=== PATIENT | female | born 1975 | race Caucasian/White ===

== ENCOUNTER 2019-02-21 23:38 | Emergency (ER) | payer OTHER ==
--- OUTSIDE RECORDS SUMMARY | 2019-02-21 23:40 | XMS REPORT ---
:1975 [facility] Address [address] [place] [address] Dr. Calderon[address] [place] [id number] Care Team Providers Name Role Phone Unavailable Unavailable Unavailable Problems This patient has no known problems. Allergies, Adverse Reactions, Alerts This patient has no known allergies or adverse reactions. Medications This patient has no known medications.
--- OUTSIDE RECORDS SUMMARY | 2019-02-21 23:40 | XMS REPORT | Continuity of Care Document ---
:1975 Author Organization [facility] Address [address] [place] [address] Phone Unavailable Care Team Providers Name Role Phone OTHER, ENTER NAME IN NOTES Primary Care Physician Unavailable Insurance Providers Guarantor Ofelia Lu Address [address] [place] [address] Email [email or web address] Payer [employer] Policy Number [id number] Subscriber's Name Ofelia Lu Relationship Self / Same As Patient Group Number [id number] Group Name NA Advance Directives Directive Response Recorded Date/Time Patient/Family Given Education Material R/T Y - 02/12/19..[place] 02/12/19 3: 31pm Directives? Chief Complaint and Reason for Visit Chief Complaint Skin Rash/Abscess/Wound Reason for Visit Abscess Cellulitis Problems Active ProblemsNo active problem information available. Past Problems Medical Problem Onset Date Status Abscess Unknown Acute Cellulitis Unknown Acute Medications No medication information available. Social History Social History Problem Response Recorded Date/Time Onset Date Status Hx Physical Abuse No 02/12/2019 3:27pm Not Applicable Not Applicable Smoking Status Start Date Stop Date Never smoker Hospital Discharge Instructions No hospital discharge instruction information available. Plan of Care Discharge Date 02/12/19 6:18pm Instructions/Education Provided Skin Abscess, Ecit-rf-Pvyq Cellulitis, Adult, Djaq-pv-Dkns Forms Provided Portal Welcome Letter Prescriptions See Medication Section Referrals OTHER,ENTER NAME IN NOTES Additional Instructions/Education CALL SURGEON FOR FOLLOW UP BACTRIM TWICE A DAY DOXYCYCLINE TWICE A DAY NAPROSYN TWICE A DAY WITH FOOD Functional Status No functional status information available. Allergies, Adverse Reactions, Alerts No known allergies. Immunizations No immunization information available. Vital Signs Acute Vital Signs Vital Response Date/Time Blood Pressure 123/77 mm Hg 02/12/2019 6:18pm Pulse Pulse Rate (adult) 78 beats per minute (60 - 100) 02/12/2019 6:18pm Respiratory Rate 20 breaths per minute (10 - 24) 02/12/2019 6:18pm Temperature Source Oral 02/12/2019 6:18pm Height 5 ft 8 in 02/12/2019 3:27pm Weight 140 lb 02/12/2019 3:27pm Body Mass Index 21.3 kg/m^2 02/12/2019 3:27pm Results Laboratory Results Test Name Result Units Flags Reference Collection Result Comments Date/Time Date/Time Random Glucose 99 mg/dL 74-106 02/12/2019 02/12/2019 4:40pm 5:04pm Blood Urea 11 mg/dL 6-20 02/12/2019 02/12/2019 Nitrogen 4:40pm 5:04pm Serum 277 L 280-300 02/12/2019 02/12/2019 Osmolality 4:40pm 5:04pm Creatinine 0.5 mg/dL 0.50-0.90 02/12/2019 02/12/2019 4:40pm 5:04pm Glomerular > 60.00 02/12/2019 02/12/2019 GFR RESULTS ARE REPORTED IN mL/min/1.73m2. Filtration 4:40pm 5:04pm Rate Calc Normal GFR: >60mL/min Moderately decreased GFR: 30-59 mL/min Severely decreased GFR: 15-29 mL/min Kidney Failure (or Dialysis): <15 mL/min The calculated eGFR is not valid for patients younger than 18 years or older than 75 years. BUN/Creatinine 22.0 H 12-20 02/12/2019 02/12/2019 Ratio 4:40pm 5:04pm Sodium Level 139 mmol/L 135-145 02/12/2019 02/12/2019 4:40pm 5:04pm Potassium 4.1 mmol/L 3.5-5.2 02/12/2019 02/12/2019 Level 4:40pm 5:04pm Chloride Level 98 mmol/L 98-108 02/12/2019 02/12/2019 4:40pm 5:04pm Carbon Dioxide 27 mmol/L 21-32 02/12/2019 02/12/2019 Level 4:40pm 5:04pm Anion Gap 18.1 mEq/L 12-20 02/12/2019 02/12/2019 4:40pm 5:04pm Calcium Level 10.1 mg/dL H 8.6-10.0 02/12/2019 02/12/2019 4:40pm 5:04pm Procedures Procedure Status Date Provider(s) Computed tomography of pelvis with contrast Completed 02/12/19 CARMEN PAYAN MD Encounters Encounter Location Arrival/Admit Date Discharge/Depart Date Attending Provider Departed [facility] 02/12/19 3:20pm 02/12/19 6:18pm CARMEN PAYAN [facility] Recent Diagnosis
[2019-02-22] MEDS ORDERED: MECLIZINE HCL 12.5 MG TAB ONE (02:09)
[2019-02-22] MEDS ORDERED: ONDANSETRON 4 MG (ODT) TAB ONE (02:09)
[2019-02-22 02:27] LABS: Basophils % 0.6 % (0-1.3); Lymphocytes % 18.6 % (15.3-44.8); RBC Red Blood Cell Count 4.11 M/uL (3.86-4.86)
[2019-02-22 02:40] LABS: ALT/SGPT 22 U/L (12-78); AST/SGOT 15 U/L (15-37); Alkaline Phosphatase 43 U/L (45-117); BUN Blood Urea Nitrogen 13 mg/dL (7-18); Bicarbonate 27 mmol/L (21-32); Bilirubin Total 0.3 mg/dL (0.2-1.0); Glucose Level 87 mg/dL (74-106); Potassium 4.2 mmol/L (3.5-5.1); Protein, Total 8.2 g/dL (6.4-8.2); Sodium Level 138 mmol/L (136-145); Troponin (Emerg Dept Use Only) < 0.02 ng/mL (0.0-0.045)
--- NOTE | 2019-02-22 02:50 | EDPHYS ---
Physician Documentation [facility] Name: Ofelia Lu Age: 43 yrs Sex: Female : 1975 Arrival Date: 02/21/2019 Time: 23:46 Bed 19 Private MD: ED Physician Emanuel Rangel HPI: 02/22 01:37 This 43 yrs old Female presents to ER via Ambulatory with complaints of ps1 Dizziness. 01:37 presenting with near syncope after standing. Hx of anxiety. Panic attack. Recently on ps1 abx for hematoma. Now feels fine. . PSYCHOLOGY TECH: 02/21 23:51 LMP 02/10/2019 ak1 Historical: - Allergies: 23:53 No Known Allergies; ak1 - Home Meds: 23:53 None [Active]; ak1 - PMHx: 23:53 None; ak1 - PSHx: 23:53 None; ak1 - Immunization history:: Adult Immunizations unknown. - Social history:: Smoking status: Patient/guardian denies using tobacco. - Ebola Screening: : No symptoms or risks identified at this time. ROS: 02/22 02:46 Constitutional: Negative for fever, chills, and weight loss, Eyes: Negative for injury, ps1 pain, redness, and discharge, Cardiovascular: Negative for chest pain, palpitations, and edema, Respiratory: Negative for shortness of breath, cough, wheezing, and pleuritic chest pain, Abdomen/GI: Negative for abdominal pain, nausea, vomiting, diarrhea, and constipation, MS/Extremity: Negative for injury and deformity, Skin: Negative for injury, rash, and discoloration. Neuro: Positive for near syncope. Psych: Positive for anxiety. Exam: 02:46 Constitutional: This is a well developed, well nourished patient who is awake, alert, ps1 and in no acute distress. Head/Face: Normocephalic, atraumatic. Eyes: Pupils equal round and reactive to light, extra-ocular motions intact. Lids and lashes normal. Conjunctiva and sclera are non-icteric and not injected. Chest/axilla: Normal chest wall appearance and motion. Nontender with no deformity. No lesions are appreciated. Cardiovascular: Regular rate and rhythm. No gallops, murmurs, or rubs. Normal PMI, no JVD. No pulse deficits. Respiratory: Lungs have equal breath sounds bilaterally, clear to auscultation and percussion. No rales, rhonchi or wheezes noted. No increased work of breathing, no retractions or nasal flaring. Abdomen/GI: Soft, non-tender, with normal bowel sounds. No distension or tympany. No guarding or rebound. No evidence of tenderness throughout. Skin: Warm, dry with normal turgor. Normal color with no rashes, no lesions, and no evidence of cellulitis. MS/ Extremity: Pulses equal, no cyanosis. Neurovascular intact. Full, normal range of motion. Neuro: Awake and alert, GCS 15, oriented to person, place, time, and situation. Cranial nerves II-XII grossly intact. Sensory grossly intact. Vital Signs: 02/21 23:51 BP 143 / 83; Pulse 77; Resp 18; Temp 97.6; Pulse Ox 97% on R/A; Weight 63.5 kg (R); ak1 Height 5 ft. 8 in. (172.72 cm) (R); Pain 0/10; 02/22 01:30 BP 121 / 80; Pulse 60; Resp 16; Pulse Ox 100% on R/A; jb4 02:32 BP 112 / 66 LA Supine; Pulse 53; Resp 16; Pulse Ox 100% on R/A; jb4 02:33 BP 120 / 75 LA Sitting; Pulse 55; Resp 16; Pulse Ox 100% on R/A; jb4 02:34 BP 112 / 78 LA Standing; Pulse 68; Resp 16; Pulse Ox 100% on R/A; jb4 02/21 23:51 Body Mass Index 21.29 (63.50 kg, 172.72 cm) ak1 MDM: 01:49 Patient medically screened. ps1 02:46 Data reviewed: vital signs, nurses notes, lab test result(s), EKG. Counseling: I had a ps1 detailed discussion with the patient and/or guardian regarding: the historical points, exam findings, and any diagnostic results supporting the discharge/admit diagnosis, lab results, radiology results, to return to the emergency department if symptoms worsen or persist or if there are any questions or concerns that arise at home. 02/22 01:37 Order name: CBC with Diff; Complete Time: 02:46 ps1 02/22 01:37 Order name: CMP; Complete Time: 02:46 ps1 02/22 01:37 Order name: Troponin (emerg Dept Use Only); Complete Time: 02:46 ps1 02/22 01:37 Order name: EKG; Complete Time: 01:39 ps1 02/22 01:37 Order name: Orthostatic Blood Pressure; Complete Time: 02:39 ps1 EC:46 Rate is 51 beats/min. Rhythm is regular. QRS [place] is Normal. VT interval is normal. QRS ps1 interval is normal. QT interval is normal. No Q waves. T waves are Normal. No ST changes noted. Clinical impression: Sinus bradycardia. Administered Medications: 02:11 Drug: Meclizine 25 mg Route: PO; jb4 03:04 Follow up: Response: No adverse reaction jb4 02:11 Not Given (Patient Refused): Zofran 4 mg PO once jb4 Disposition: 02/22/19 02:49 Discharged to Home. Impression: Near syncope. - Condition is Stable. - Discharge Instructions: Near-Syncope. - Medication Reconciliation Form, Thank You Letter, Antibiotic Education, Prescription Opioid Use form. - Follow up: Private Physician; When: As needed; Reason: Recheck today's complaints, Continuance of care, Re-evaluation by your physician. Follow up: Emergency Department; When: As needed; Reason: Fever > 102 F, Trouble breathing, Worsening of condition. - Problem is new. - Symptoms are resolved. Signatures: Dispatcher [employer] EDMS Bess Marquez RN RN ak1 Poncho Flowers RN RN jb4 Emanuel Rangel MD MD ps1 Corrections: (The following items were deleted from the chart) 03:04 02:49 02/22/2019 02:49 Discharged to Home. Impression: Near syncope. Condition is jb4 Stable. Forms are Medication Reconciliation Form, Thank You Letter, Antibiotic Education, Prescription Opioid Use. Follow up: Private Physician; When: As needed; Reason: Recheck today's complaints, Continuance of care, Re-evaluation by your physician. Follow up: Emergency Department; When: As needed; Reason: Fever > 102 F, Trouble breathing, Worsening of condition. Problem is new. Symptoms are resolved. ps1
--- NOTE | 2019-02-22 02:50 | ER ---
Nurse's Notes [facility] Name: Ofelia Lu Age: 43 yrs Sex: Female : 1975 Arrival Date: 02/21/2019 Time: 23:46 Bed 19 Private MD: Diagnosis: Near syncope Presentation: 02/21 23:51 Presenting complaint: Patient states: dizziness at 2200. pt stated she woke up and ak1 became dizzy, seeing black spots. pt finishing bactrim, doxycycline and naproxen for cellulitis over a week ago. Transition of care: patient was not received from another setting of care. Onset of symptoms was February 21, 2019. Risk Assessment: Do you want to hurt yourself or someone else? Patient reports no desire to harm self or others. Initial Sepsis Screen: Does the patient meet any 2 criteria? No. Patient's initial sepsis screen is negative. Does the patient have a suspected source of infection? No. Patient's initial sepsis screen is negative. Care prior to arrival: None. 23:51 Method Of Arrival: Ambulatory ak1 23:51 Acuity: MARLIN 3 ak1 Triage Assessment: 23:53 General: Appears in no apparent distress. Behavior is calm, cooperative. Pain: Denies ak1 pain. [place]: 23:51 LMP 02/10/2019 ak1 Historical: - Allergies: 23:53 No Known Allergies; ak1 - Home Meds: 23:53 None [Active]; ak1 - PMHx: 23:53 None; ak1 - PSHx: 23:53 None; ak1 - Immunization history:: Adult Immunizations unknown. - Social history:: Smoking status: Patient/guardian denies using tobacco. - Ebola Screening: : No symptoms or risks identified at this time. Screenin:53 Abuse screen: Denies threats or abuse. Denies injuries from another. Nutritional ak1 screening: No deficits noted. Tuberculosis screening: No symptoms or risk factors identified. Fall Risk None identified. Assessment: 02/22 00:00 General: Appears in no apparent distress. comfortable, Behavior is calm, cooperative, jb4 appropriate for age. Pain: Denies pain. Neuro: Level of Consciousness is awake, alert, obeys commands, Oriented to person, place, time, situation. Cardiovascular: Patient's skin is warm and dry. Respiratory: Airway is patent Respiratory effort is even, unlabored, Respiratory pattern is regular, symmetrical. GI: No deficits noted. No signs and/or symptoms were reported involving the gastrointestinal system. : No deficits noted. No signs and/or symptoms were reported regarding the genitourinary system. EENT: No deficits noted. No signs and/or symptoms were reported regarding the EENT system. Derm: Skin is intact, Skin is pink, warm \T\ dry. Musculoskeletal: Circulation, motion, and sensation intact. Range of motion: intact in all extremities. 01:00 Reassessment: Patient appears in no apparent distress at this time. Patient and/or jb4 family updated on plan of care and expected duration. Pain level reassessed. Patient is alert, oriented x 3, equal unlabored respirations, skin warm/dry/pink. 01:33 Reassessment: Provider is at the bedside. jb4 02:36 Reassessment: Patient appears in no apparent distress at this time. Patient and/or jb4 family updated on plan of care and expected duration. Pain level reassessed. Patient is alert, oriented x 3, equal unlabored respirations, skin warm/dry/pink. 03:02 Reassessment: Patient appears in no apparent distress at this time. Patient and/or jb4 family updated on plan of care and expected duration. Pain level reassessed. Patient is alert, oriented x 3, equal unlabored respirations, skin warm/dry/pink. Pt ambulated out of Ed with steady gait, with son, verbalized understanding of d/c and follow up instructions. Vital Signs: 02/21 23:51 BP 143 / 83; Pulse 77; Resp 18; Temp 97.6; Pulse Ox 97% on R/A; Weight 63.5 kg (R); ak1 Height 5 ft. 8 in. (172.72 cm) (R); Pain 0/10; 02/22 01:30 BP 121 / 80; Pulse 60; Resp 16; Pulse Ox 100% on R/A; jb4 02:32 BP 112 / 66 LA Supine; Pulse 53; Resp 16; Pulse Ox 100% on R/A; jb4 02:33 BP 120 / 75 LA Sitting; Pulse 55; Resp 16; Pulse Ox 100% on R/A; jb4 02:34 BP 112 / 78 LA Standing; Pulse 68; Resp 16; Pulse Ox 100% on R/A; jb4 02/21 23:51 Body Mass Index 21.29 (63.50 kg, 172.72 cm) ak1 ED Course: 02/21 23:46 Patient arrived in ED. cl3 23:52 Triage completed. ak1 23:53 Arm band placed on Patient placed in an exam room, on a stretcher, Patient notified of ak1 wait time. 23:53 Patient has correct armband on for positive identification. ak1 02/22 01:25 Emanuel Rangel MD is Attending Physician. ps1 01:31 Poncho Flowers, RN is Primary Nurse. jb4 02:05 Initial lab(s) drawn, by me, sent to lab. Inserted saline lock: 20 gauge in right jb4 antecubital area, using aseptic technique. Blood collected. 03:02 No provider procedures requiring assistance completed. IV discontinued, intact, jb4 bleeding controlled, No redness/swelling at site. Pressure dressing applied. Administered Medications: 02:11 Drug: Meclizine 25 mg Route: PO; jb4 03:04 Follow up: Response: No adverse reaction jb4 02:11 Not Given (Patient Refused): Zofran 4 mg PO once jb4 Outcome: 02:49 Discharge ordered by . ps1 03:04 Discharged to home ambulatory, with family. jb4 03:04 Condition: stable 03:04 Discharge instructions given to patient, family, Instructed on discharge instructions, follow up and referral plans. Demonstrated understanding of instructions, follow-up care. 03:04 Patient left the ED. jb4 Signatures: Bess Marquez RN RN ak1 Poncho Flowers, LACEY RAHMAN jb4 Emanuel Rangel MD MD ps1 Mauricio Mcdaniel cl3
[2019-02-22 03:39] VITALS: TEMP 97.6
[2019-02-22 03:40] VITALS: O2SAT 100
[2019-02-22 03:44] VITALS: BP 112/78
--- NOTE | 2019-02-22 07:34 | EKG ---
Test Date: 2019-02-22 Test Time: 02:22:32 Lining Marker: DEEPIKA MEASUREMENT RESULTS: Intervals: Rate: 51 WY: 156 QRSD: 78 QT: 426 QTc: 392 [place]: P: 42 WY: 156 QRS: 72 T: 64 INTERPRETIVE STATEMENTS: Sinus bradycardia with sinus arrhythmia Otherwise normal ECG No previous ECG available for comparison Electronically Signed On 02-22-19 07:33:29 CDT by Colt Machado
== END 2019-02-22 03:04 | disposition home or self-care (01) ==
LOC: ER 23:38
DX: R55 Syncope and collapse (principal); F41.9 Anxiety disorder, unspecified
CPT/HCPCS: 36415; 80053; 84484; 85025; 93005; 99284